=== PATIENT | female | born 1985 | race Caucasian/White ===

== ENCOUNTER 2016-07-23 07:37 | Emergency (ER) | payer SELFPAY ==
[~2016-07-23] VITALS: Wt 85.0 kg
--- NOTE | 2016-07-23 08:34 | RADRPT ---
PROCEDURE: Neck for soft tissue. CLINICAL INDICATION: Possible chicken bone. TECHNIQUE: AP and lateral views with soft tissue detail are performed. COMPARISON: No. FINDINGS: There is 7 cervical vertebral bodies. They are anatomically aligned. The articular facets, lamina, spinous processes and vertebra are intact. The intervertebral disk spaces are normal. The neural c anal and nerve root foramina are unremarkable. The visible portions of the ribs and lungs are normal. The paravertebral soft tissues are normal. N o radiopaque foreign body is identified. IMPRESSION: 1. No evidence of a linear foreign body to suggest a chicken bone. 2. Otherwise, unremarkable AP and lateral view of the cervical spine for soft tissue. RPTAT:AAJJ Physician Chalo Date Time Electronically viewed and signed by Morgan Alarcon Physician on 07/23/2016 08:34 /
--- NOTE | 2016-07-23 08:44 | ERD ---
ER Documentation Chief Complaint Date/Time DATE: 07/23/16 TIME: 08:41 Chief Complaint feels like something stuck in throat after eating chicken last night HPI 31 year old female was eating chicken last night and she states she has been feeling a foreign body sensation since. She has no trouble swallowing, vomiting , shortness of breath. No fevers. ROS All systems reviewed and are negative except as per history of present illness. PMhx/Soc History of Surgery: No Anesthesia Reaction: No Hx Neurological Disorder: No Hx Respiratory Disorders: No Hx Cardiac Disorders: No Hx Psychiatric Problems: No Hx Miscellaneous Medical Probl: No Hx Alcohol Use: No Hx Substance Use: No Hx Tobacco Use: No Smoking Status: Never smoker Physical Exam Vitals Vital Signs Date Time Temp Pulse Resp B/P Pulse Ox O2 Delivery O2 Flow Rate FiO2 07/23/16 07:41 98.5 86 18 137/81 98 Physical Exam General: Well-developed, well-nourished. The patient appears in no acute distress. HEENT: Head is normocephalic, atraumatic. No scleral icterus. Oropharynx is clear, no stridor, no trismus. No foreign body seen, no abscess or swelling, uvula midline. Neck: Supple. Nontender. Lungs: Clear to auscultation. Normal air movement. Heart: Regular rate and rhythm. S1 and S2 are normal. No murmurs, gallops, or rubs. Abdomen: Nondistended. Soft nontender. Extremities: No clubbing or cyanosis. Moving extremities x 4. No weakness. Neurologic: Alert and oriented 3. No focal deficits. Normal speech and gait. Skin: Normal turgor. No rash or lesions. Results 24 hrs PROCEDURE: Neck for soft tissue. CLINICAL INDICATION: Possible chicken bone. TECHNIQUE: AP and lateral views with soft tissue detail are performed. COMPARISON: No. FINDINGS: There is 7 cervical vertebral bodies. They are anatomically aligned. The articular facets, lamina, spinous processes and vertebra are intact. The intervertebral disk spaces are normal. The neural canal and nerve root foramina are unremarkable. The visible portions of the ribs and lungs are normal. The paravertebral soft tissues are normal. No radiopaque foreign body is identified. IMPRESSION: 1. No evidence of a linear foreign body to suggest a chicken bone. 2. Otherwise, unremarkable AP and lateral view of the cervical spine for soft tissue. RPTAT:AAJJ Physician [place] Date Time Electronically viewed and signed by Morgan Alarcon Physician on 07/23/2016 08:34 Procedures/MDM 31-year-old female presents with a foreign body sensation in her esophagus, patient presents with the esophageal versus pharyngeal abrasion. X-ray of the soft tissue neck does not show any evidence of foreign body, she does not have any evidence of chicken bone, does not have any signs of an abscess, and patient will be discharged home. Departure Diagnosis: Primary Impression: Esophageal abrasion Condition: Good Patient Instructions: Pharyngeal Abrasion Additional Instructions: Call your primary care doctor TOMORROW for an appointment during the next 1-2 days.See the doctor sooner or return here if your condition worsens before your appointment time. CLARA BRUCE PA-C Jul 23, 2016 08:44
== END 2016-07-23 08:46 | disposition home or self-care (01) ==
LOC: FTE 07:37
DX: S10.11XA Abrasion of throat, initial encounter (principal); X58.XXXA Exposure to other specified factors, initial encounter; Y92.9 Unspecified place or not applicable
CPT/HCPCS: 70360